=== PATIENT | male | born 1990 | race Caucasian/White ===

== ENCOUNTER 2018-06-07 16:19 | Emergency (ER) | payer OTHER ==
[~2018-06-07] VITALS: Ht 188 cm; Wt 88.6 kg
[2018-06-07 17:27] LABS: INFLUENZA A AMPLIFICATION POSITIVE (NEGATIVE); INFLUENZA B AMPLIFICATION NEGATIVE (NEGATIVE)
[2018-06-07] MEDS ORDERED: OSEL75CA PO (17:59)
[2018-06-07] MEDS ORDERED: OSELTAMIVIR PHOSPHATE 75 MG CAP (TAMIFLU) PO ONE (18:00)
[2018-06-07 19:20] VITALS: BP 124/67
== END 2018-06-07 19:24 | disposition home or self-care (01) ==
LOC: M ED 16:19
DX: J09.X2 Influenza due to identified novel influenza A virus with other respiratory manifestations (principal); Z88.1 Allergy status to other antibiotic agents; Z88.8 Allergy status to other drugs, medicaments and biological substances

== ENCOUNTER → 2023-12-19 | Outpatient (REF) | payer OTHER ==
[~2023-12-19] MED LIST: OSEL75CA PO
[2023-12-19 12:22] LABS: SEMEN APPEARANCE OPAQUE (OPAQUE); SEMEN VISCOSITY LIQUID (LIQUID); SEMEN VOLUME 4.9 ml (2.0-5.0)
[2023-12-19 12:23] LABS: SPERM CONCENTRATION 17.7 M/ml (>=15.0); WBC CONCENTRATION <=1 M/ml (<=1 M/ml)
== END ==
LOC: M LAB REF 11:46
PROVIDERS: ATTEND Physician Assistant
DX: N46.9 Male infertility, unspecified (principal)